=== PATIENT | male | born 1985 | race Hispanic/Latino ===

== ENCOUNTER 2017-12-21 21:02 | Emergency (ER) | payer OTHER | END 2017-12-21 22:53 | disposition home or self-care (01) | LOC: EDH 21:02 | DX: H93.11 Tinnitus, right ear (principal); R09.81 Nasal congestion | CPT/HCPCS: 99281 ==

== ENCOUNTER 2018-04-28 09:23 | Observation (INO) | payer OTHER ==
[2018-04-28] VITALS (18 sets, daily range): BP systolic 112–128; BP diastolic 43–87
[2018-04-28] MEDS ORDERED: SODIUM CHLORIDE 0.9% 1000ML 1,000 ML IV ONE (09:44)
[2018-04-28] MEDS ORDERED: KETOROLAC TROMETHAMINE 30MG/ML ONE (09:44)
[2018-04-28 09:51] LABS: CREATININE 0.9 mg/dL (0.5-1.5)
[2018-04-28 09:55] LABS: ALBUMIN 4.6 g/dL (3.5-5.0); BILIRUBIN,TOTAL 1.7 mg/dL (0.2-1.0); TOTAL PROTEIN, SERUM 8.5 g/dL (6.0-8.3)
[2018-04-28 09:58] LABS: BASOPHILS % (AUTO) 0.2 % (0.0-5.0); HEMATOCRIT 43.4 % (42-54); LYMPHOCYTES % (AUTO) 6.3 % (21.0-51.0); MEAN CORPUSCULAR HGB CONC 33.4 g/dL (32.0-36.0); MEAN CORPUSCULAR VOLUME 83.9 fL (79-99); MONOCYTES % (AUTO) 3.1 % (3.0-13.0); NEUTROPHILS % (AUTO) 90.4 % (40.0-77.0); NUCLEATED RED BLOOD CELLS 0.4 % (0.0-0.19); PLATELET COUNT (AUTO) 323 K/uL (130-400); RED BLOOD CELL COUNT(AUTO) 5.17 MIL/uL (4.50-6.20); RED CELL DISTRIBUTION WIDTH 13.4 % (11.0-15.5); WHITE BLOOD COUNT (AUTO) 18.1 K/uL (4.8-10.8)
[2018-04-28] MEDS ORDERED: IOHEXOL-350 75 ML VIAL IV ONE (10:05)
[2018-04-28] MEDS ORDERED: ZOSYN 3.375GM+NS 50ML 50 ML IV ONE (13:06)
[2018-04-28] MEDS ORDERED: LACTATED RINGERS 1000ML 1,000 ML IV ONE (13:06)
[2018-04-28] MEDS ORDERED: NEOSTIGMINE 5MG/5ML SYR IV ONE (16:19)
[2018-04-28] MEDS ORDERED: GLYCOPYRROLATE 0.2 MG/ML 5 ML VIAL ONE (16:19)
[2018-04-28] MEDS ORDERED: MIDAZOLAM HCL 1 MG/ML 2ML VIAL ONE (16:19)
[2018-04-28] MEDS ORDERED: LIDOCAINE PF 2% 5ML ABBOJECT ONE ×2 (16:19→17:05)
[2018-04-28] MEDS ORDERED: SUCCINYLCHOLINE 200MG/10ML SYR ONE (16:19)
[2018-04-28] MEDS ORDERED: DEXAMETHASONE SOD PHOSPHATE 10MG/ML 1ML VIAL ONE (16:19)
[2018-04-28] MEDS ORDERED: PROPOFOL 10 MG/ML 20ML VIAL IV ONE ×2 (16:19→17:13)
[2018-04-28] MEDS ORDERED: FENTANYL CITRATE PF 50 MCG/1 ML 2ML VIAL ONE ×2 (16:20→16:37)
[2018-04-28] MEDS ORDERED: ROCURONIUM BROMIDE 10MG/1ML 5ML VL ONE (16:21)
[2018-04-28] MEDS ORDERED: BUPIVACAINE/PF 0.5% 30ML VIAL ONE (16:55)
[2018-04-28] MEDS ORDERED: MEPERIDINE-PF 50 MG/ML SYG ONE (17:16)
[2018-04-28] MEDS: LACTATED RINGERS 1000ML 1,000 ML IV SCH (18:51)
[2018-04-28] MEDS ORDERED: ACETAMINOPHEN-CODEINE 300/30MG TAB PO PRN (19:00)
[2018-04-28] MEDS: ONDANSETRON HCL MDV 20ML 2 MG/ML VIAL IVP PRN (20:20)
[2018-04-28] MEDS: MORPHINE SULFATE 4 MG/1ML SYG IVP PRN (20:43)
[2018-04-28] MEDS: ZOSYN 3.375GM+NS 50ML 50 ML IV SCH (21:39)
[2018-04-29 00:07] VITALS: BP 132/69
[2018-04-29] MEDS: MORPHINE SULFATE 4 MG/1ML SYG IVP PRN ×2 (01:25→08:14)
[2018-04-29 04:00] VITALS: BP 146/73
[2018-04-29 04:06] LABS: HEMATOCRIT 35.1 % (42-54); MEAN CORPUSCULAR HEMOGLOBIN 28.8 pg (27.0-33.0); MEAN CORPUSCULAR HGB CONC 33.8 g/dL (32.0-36.0); MEAN CORPUSCULAR VOLUME 85.3 fL (79-99); PLATELET COUNT (AUTO) 296 K/uL (130-400); RED BLOOD CELL COUNT(AUTO) 4.12 MIL/uL (4.50-6.20); RED CELL DISTRIBUTION WIDTH 13.4 % (11.0-15.5); WHITE BLOOD COUNT (AUTO) 14.3 K/uL (4.8-10.8)
[2018-04-29 04:17] LABS: CREATININE 0.9 mg/dL (0.5-1.5); POTASSIUM 3.7 mmol/L (3.5-5.1)
[2018-04-29] MEDS: ZOSYN 3.375GM+NS 50ML 50 ML IV SCH ×2 (04:41→13:41)
[2018-04-29] MEDS: LACTATED RINGERS 1000ML 1,000 ML IV SCH ×2 (05:00→14:17)
[2018-04-29 07:20] VITALS: BP 117/75
[2018-04-29] MEDS: ONDANSETRON HCL MDV 20ML 2 MG/ML VIAL IVP PRN (08:04)
[2018-04-29 11:29] VITALS: BP 129/68
== END 2018-04-29 17:13 | disposition home or self-care (01) ==
LOC: EDH 09:23 → OBSVTOIN 09:24 → EDHIP 09:24 → INTOOBSV 09:24 → 2AH 18:04
PROVIDERS: ADMIT Surgery; ATTEND Surgery
DX: K35.80 Unspecified acute appendicitis (principal)
CPT/HCPCS: 36415 ×2; 44970; 74177; 80048; 80053; 83690; 85025; 85027; 88304; 96365; 96366 ×2; 96375; 96376; 99285; A4649 ×6; A4930; C1769 ×3; G0378 ×32; J0330; J1100; J1885; J2001 ×2; J2175; J2250; J2270 ×3; J2543 ×3; J2704 ×2; J2710; J3010 ×2; J3490 ×3; J7030 ×2; J7120; Q9967

== ENCOUNTER 2019-09-29 20:50 | Emergency (ER) | payer OTHER ==
[2019-09-29] MEDS ORDERED: SODIUM CHLORIDE 0.9% 1000ML 2,000 ML IV ONE (21:26)
[2019-09-29 21:39] LABS: BASOPHILS % (AUTO) 0.3 % (0.0-5.0); EOSINOPHILS % (AUTO) 3.8 % (0.0-8.0); HEMATOCRIT 38.7 % (42-54); LYMPHOCYTES % (AUTO) 18.2 % (21.0-51.0); MEAN CORPUSCULAR HEMOGLOBIN 28.6 pg (27.0-33.0); MEAN CORPUSCULAR HGB CONC 34.1 g/dL (32.0-36.0); MEAN CORPUSCULAR VOLUME 83.9 fL (79-99); MONOCYTES % (AUTO) 8.1 % (3.0-13.0); NEUTROPHILS % (AUTO) 69.3 % (40.0-77.0); PLATELET COUNT (AUTO) 257 K/uL (130-400); RED BLOOD CELL COUNT(AUTO) 4.61 MIL/uL (4.50-6.20); RED CELL DISTRIBUTION WIDTH 12.6 % (11.0-15.5); WHITE BLOOD COUNT (AUTO) 9.6 K/uL (4.8-10.8)
[2019-09-29 21:43] LABS: APPEARANCE,URINE Clear (CLEAR); BILIRUBIN,URINE Negative (NEGATIVE); COLOR,URINE Yellow (YELLOW); GLUCOSE, URINE (UA) Negative (NEGATIVE); KETONES,URINE Negative (NEGATIVE); LEUKOCYTE ESTERASE ,URINE Negative (NEGATIVE); NITRATE,URINE Negative (NEGATIVE); OCCULT BLOOD,URINE Negative (NEGATIVE); PH,URINE 6.5 (5.0-8.0); PROTEIN,URINE Negative (NEGATIVE); UROBILINOGEN,URINE 0.2 mg/dL (0.2-1.0)
[2019-09-29 21:47] LABS: POTASSIUM 3.2 mmol/L (3.5-5.1)
[2019-09-29 21:51] LABS: ALBUMIN 4.1 g/dL (3.5-5.0); BILIRUBIN,DIRECT 0.1 mg/dL (0.0-0.3); BILIRUBIN,TOTAL 0.7 mg/dL (0.2-1.0); TOTAL PROTEIN, SERUM 7.6 g/dL (6.0-8.3)
[2019-09-29 22:09] LABS: B-TYPE NATRIURETIC PEPTIDE < 5 pg/mL (0-100)
== END 2019-09-29 23:36 | disposition home or self-care (01) ==
LOC: EDH 20:50
DX: J21.9 Acute bronchiolitis, unspecified (principal); Z90.49 Acquired absence of other specified parts of digestive tract
CPT/HCPCS: 36415; 71045; 80048; 80076; 81003; 82550; 83880; 84484; 85025; 87804 ×2; 93005; 99283; J7030